=== PATIENT | female | born 1970 | race Caucasian/White ===

== ENCOUNTER 2020-08-26 04:18 | Day surgery (SDC) | payer OTHER ==
[2020-08-25 16:38] VITALS: BMI 22.6
[2020-08-26] MEDS ORDERED: IBUPROFEN 400 MG TABLET (FP) PO PRN (09:37)
[2020-08-26] MEDS ORDERED: ACETAMINOPHEN 325 MG TABLET (FP) PO PRN (09:37)
--- NOTE | 2020-08-26 09:46 | HP ---
Admitting History and Physical - Admission History of Present Illness: 50 yo with hx/o irregular bleeding for hysteroscopy, D&C Hx/o tamoxifen use x 6 years History Source: Patient Limitations to Obtaining History: No Limitations - Past Medical History Cardiovascular: No: HTN Pulmonary: No: Asthma Gastrointestinal: Yes: GERD Renal/: Yes: Other (Renal Cell Carcinoma, s/p partial nephrectomy) ...LMP: 08/12/20 Additional Past Medical History: Breast CA s/p bilateral mastectomy and tamoxifen x 6 tears - Past Surgical History Additional Past Surgical History: L Partial nephrectomy Bilateral mastectomy Adenoidectomy CD x 2 Appendedctomy - Smoking History Smoking history: Never smoked Have you smoked in the past 12 months: No - Alcohol/Substance Use Hx Alcohol Use: No History of Substance Use: reports: None Home Medications - Allergies Allergies/Adverse Reactions: Allergies Allergy/AdvReac Type Severity Reaction Status Date / Time No Known Allergies Allergy Verified 08/26/20 09:03 - Home Medications Home Medications: Ambulatory Orders NK [No Known Home Medication] 08/25/20 Family Medical History Family History: Denies Review of Systems - Review of Systems Constitutional: reports: No Symptoms Neck: reports: No Symptoms Cardiovascular: reports: No Symptoms Gastrointestinal: reports: No Symptoms Genitourinary: reports: No Symptoms Integumentary: reports: No Symptoms Neurological: reports: No Symptoms Hematology/Lymphatic: reports: No Symptoms Psychiatric: reports: No Symptoms Physical Examination Vital Signs: Vital Signs Temperature 98.2 F 08/26/20 08:30 Pulse Rate 78 08/26/20 08:30 Respiratory Rate 16 08/26/20 08:30 Blood Pressure 121/72 08/26/20 08:30 O2 Sat by Pulse Oximetry (%) 100 08/26/20 08:30 Constitutional: Yes: Well Nourished, No Distress, Calm Cardiovascular: Yes: Regular Rate and Rhythm Respiratory: Yes: Regular, CTA Bilaterally Gastrointestinal: Yes: Soft Edema: No Assessment/Plan 50 yo with irregular bleeding hx/o tamoxifen use for hysteroscopy, D&C 1. Consents reviewed and signed, risks/benefits/alternatives and complications discussed including but not limited to infection, bleeding, damage to surrounding organs, uterine perforation 2. SCDs for DVT prophylaxis 3. No antibiotics necessary 4. Reviewed preop labs, COVID negative 5. Will proceed to OR
[2020-08-26] MEDS ORDERED: MIDAZOLAM HCL 2 MG/2 ML SINGLE DOSE VIAL ONE (10:42)
[2020-08-26] MEDS ORDERED: PROPOFOL 20 ML ONE (10:42)
[2020-08-26] MEDS ORDERED: LIDOCAINE HCL/PF 2% SDV 5ML VIAL ONE (10:51)
[2020-08-26] MEDS ORDERED: DEXAMETHASONE SOD PHOSPHATE 4 MG/1 ML VIAL ONE (11:00)
[2020-08-26] MEDS ORDERED: KETOROLAC TROMETHAMINE 30 MG/1 ML VIAL ONE (11:10)
[2020-08-26] MEDS ORDERED: ONDANSETRON 4 MG/2 ML VIAL IVPUSH PRN (11:39)
[2020-08-26] MEDS ORDERED: PROMETHAZINE HCL 25 MG/1 ML VIAL IVPUSH PRN (11:39)
[2020-08-26] MEDS ORDERED: oxyCODONE HCL 5 MG TABLET PO PRN (11:39)
[2020-08-26] MEDS ORDERED: LACTATED RINGERS SOLUTION 1,000 ML IV SCH (11:45)
--- NOTE | 2020-08-26 11:50 | OP ---
Operative Note - Note: Operative Date: 08/26/20 Pre-Operative Diagnosis: 1. Menorrhagia; 2. irregular menses; 3. Hx/o Tamoxifen use Operation: hysteroscopy, dilation and curettage, fractional D&C Findings: normal appearing endometrium, bilateral ostia visualized, anterior submucosal fibroid Post-Operative Diagnosis: Same as Pre-op Surgeon: Rachel Coats Anesthesiologist/MORTUARY OPERATIONS MANAGER: Robin De La Paz Anesthesia: General Estimated Blood Loss (mls): 5 Drains, Volume Out (mls): 50 (fluid deficit) Fluid Volume Replaced (mls): 300 Operative Report Dictated: Yes
--- NOTE | 2020-08-26 12:31 | OP ---
DATE OF OPERATION: 08/26/2020 SURGEON: Noble Coats MD PREOPERATIVE DIAGNOSIS: Menorrhagia, history of tamoxifen use, and abnormal Pap smear. POSTOPERATIVE DIAGNOSIS: Menorrhagia, history of tamoxifen use, and abnormal Pap smear. PROCEDURE: Hysteroscopy, suction, dilatation and curettage. ANESTHESIOLOGIST: MD FLUIDS GIVEN: 300 mL. ESTIMATED BLOOD LOSS: 5 mL. FLUID DEFICIT: 15 mL. INDICATIONS: The patient is a 50-year-old with a history of tamoxifen use and irregular periods. Recent Pap smear with abnormal cells. Cannot rule out high-grade for a suction, D and C. The risks, benefits, alternatives, and complications of the procedure were discussed including infection, bleeding, and perforation. She expressed understanding. She was brought to the operating room. DETAILS OF PROCEDURE: When anesthesia was found to be adequate, the patient was prepped and draped in the normal sterile fashion and placed in dorsal lithotomy position using Martin stirrups. A weighted speculum was placed in the posterior vagina. The anterior vagina was retracted using King retractor. The anterior lip of the cervix was grasped using an Allis clamp. Intercervical curetting was performed. The cervix was found to be dilated. Hysteroscope was placed. Normal tubes and endometrium was noted. Gentle sharp curetting was performed. Endometrial tissue was collected and sent to pathology. All instruments were removed. The patient was awakened from anesthesia and brought to the recovery room in stable condition. NOBLE COATS M.D. [id number]
[2020-08-26 12:54] VITALS: TEMP 97.8
[2020-08-26 14:23] VITALS: BP 145/76; PULSE 96
--- NOTE | 2020-08-28 13:58 | PATH ---
Surgical Pathology Report Patient Name: VALENTIN DO [facility]. Rec. #: [id number] /Age/Gender: 1970 (Age: 50) / F Account: [id number] Location: [facility] SURGICAL Taken: 08/26/2020 Received: 08/26/2020 Reported: 08/28/2020 Physicians: Rachel Coats Specimen(s) Received A: ENDOCERVICAL CURETTINGS B: ENDOMETRIAL CURETTINGS Clinical History Irregular menstruation History of tamoxifen use x6 years, irregular menses/menorrhagia, thickened endometrium on ultrasound Recent Pap smear-atypical squamous cells, cannot rule out high grade, HPV negative (07/2020), history of HPV 2018-negative colposcopy Final Diagnosis A. ENDOCERVICAL CURETTINGS: FRAGMENTS OF ENDOCERVICAL TISSUE WITH MICROGLANDULAR HYPERPLASIA AND SQUAMOUS METAPLASIA. NO EVIDENCE OF DYSPLASIA. B. ENDOMETRIAL CURETTINGS: ENDOMETRIAL POLYP. SEPARATE WEAKLY PROLIFERATIVE ENDOMETRIUM WITH EOSINOPHILIC SYNCYTIAL CHANGE. CERVICAL SQUAMOUS EPITHELIUM WITH ACUTE AND CHRONIC INFLAMMATION. Electronically Signed Nikos Gonzalez M.D. Gross Description A. Received in formalin labeled "endocervical curettings," is a 2.2 x 1.5 x 0.3 cm aggregate of blood-tinged mucus, possibly containing soft tissue fragments. The formalin is filtered and the specimen is entirely submitted in one cassette. B. Received in formalin labeled "endometrial curettings," is a 2.6 x 2.2 x 0.3 cm aggregate of ramon red soft tissue fragments. The formalin is filtered and the specimen is entirely submitted in 2 cassettes. /08/26/2020 saudi/08/26/2020
== END 2020-08-26 14:26 | disposition home or self-care (01) ==
LOC: JASU-SURG 04:18
PROVIDERS: ATTEND Obstetrics & Gynecology
PROC: 0UDB8ZX Extraction of Endometrium, Via Natural or Artificial Opening Endoscopic, Diagnostic (ICD-10-PCS; principal; 2020-08-26 10:00)
DX: N92.0 Excessive and frequent menstruation with regular cycle (principal); R87.619 Unspecified abnormal cytological findings in specimens from cervix uteri; Z92.29 Personal history of other drug therapy
CPT/HCPCS: 36415; 84703; 86850; 86900; 86901; 86922; 88305-TC; 94760

== ENCOUNTER 2020-09-23 04:24 | Day surgery (SDC) | payer OTHER ==
[2020-09-22 13:57] VITALS: BMI 22.6
[2020-09-23] MEDS ORDERED: DEXAMETHASONE SOD PHOSPHATE 4 MG/1 ML VIAL ONE ×2 (11:28→12:29)
[2020-09-23] MEDS ORDERED: MIDAZOLAM HCL 2 MG/2 ML SINGLE DOSE VIAL ONE (11:28)
[2020-09-23] MEDS ORDERED: PROPOFOL 20 ML ONE (11:28)
[2020-09-23] MEDS ORDERED: LIDOCAINE HCL/PF 2% SDV 5ML VIAL ONE (11:28)
[2020-09-23] MEDS ORDERED: ONDANSETRON 4 MG/2 ML VIAL ONE ×2 (11:28→12:29)
[2020-09-23] MEDS ORDERED: ACETAMINOPHEN 325 MG TABLET (FP) PO PRN (12:11)
[2020-09-23] MEDS ORDERED: IBUPROFEN 400 MG TABLET (FP) PO PRN (12:11)
[2020-09-23] MEDS ORDERED: KETOROLAC TROMETHAMINE 30 MG/1 ML VIAL ONE (12:29)
[2020-09-23] MEDS ORDERED: ONDANSETRON 4 MG/2 ML VIAL IVPUSH PRN (12:45)
[2020-09-23] MEDS ORDERED: oxyCODONE HCL 5 MG TABLET PO PRN ×2 (12:45)
[2020-09-23] MEDS ORDERED: LACTATED RINGERS SOLUTION 1,000 ML IV SCH (12:45)
[2020-09-23 15:25] VITALS: BP 129/84; PULSE 78; TEMP 98
== END 2020-09-23 15:30 | disposition home or self-care (01) ==
LOC: JASU-SURG 04:24
PROVIDERS: ATTEND Obstetrics & Gynecology
PROC: 0UBC7ZX Excision of Cervix, Via Natural or Artificial Opening, Diagnostic (ICD-10-PCS; principal; 2020-09-23 12:00)
DX: N87.0 Mild cervical dysplasia (principal)
CPT/HCPCS: 36415; 84703; 86850; 86900; 86901; 86922; 88305-TC; 88307-TC; 94760

== ENCOUNTER 2020-10-23 05:38 | Day surgery (SDC) | payer OTHER ==
[2020-10-22 07:59] VITALS: BMI 23.3
[2020-10-23] MEDS ORDERED: LIDOCAINE HCL 2% JELLY 10 ML CARTRIDGE ONE ×2 (13:53→13:56)
[2020-10-23] MEDS ORDERED: IBUPROFEN 600 MG TABLET (FP) PO ONE (14:45)
[2020-10-23 15:47] VITALS: BP 130/74; PULSE 75; TEMP 98
== END 2020-10-23 15:47 | disposition home or self-care (01) ==
LOC: JASU-ENDO 05:38
PROVIDERS: ATTEND Internal Medicine Gastroenterology
PROC: 06LY4CC Occlusion of Hemorrhoidal Plexus with Extraluminal Device, Percutaneous Endoscopic Approach (ICD-10-PCS; principal; 2020-10-23 13:30)
DX: K64.8 Other hemorrhoids (principal); K57.30 Diverticulosis of large intestine without perforation or abscess without bleeding
CPT/HCPCS: 81025

== ENCOUNTER 2021-09-13 20:55 | Emergency (ER) | payer OTHER ==
[2021-09-13] MEDS ORDERED: DALBAVANCIN HCL 1,500 MG in DEXTROSE 5%-WATER - 500 ML IVPB ONE (21:08)
[2021-09-13 21:10] VITALS: BP 157/86; PULSE 95; TEMP 99.1; BMI 22.4
== END 2021-09-13 22:28 | disposition home or self-care (01) ==
LOC: FER 20:55
DX: L03.116 Cellulitis of left lower limb (principal)
CPT/HCPCS: 99284-25; J0875

== ENCOUNTER 2024-03-29 04:39 | Day surgery (SDC) | payer OTHER ==
[2024-03-27 10:16] VITALS: BMI 22.4
[2024-03-29] MEDS ORDERED: LIDOCAINE HCL 2% JELLY 11 ML TP ONE (11:56)
[2024-03-29] MEDS ORDERED: FENTANYL CITRATE/PF 50 MCG/ML VIAL ONE (12:15)
[2024-03-29] MEDS: LIDOCAINE HCL 2% 100 MG/5 ML DISP.SYRIN NR ONE (12:25)
[2024-03-29 12:49] VITALS: TEMP 97.8
[2024-03-29] MEDS ORDERED: ACETAMINOPHEN INJECTION 100 ML IVPB ONE (12:54)
[2024-03-29] MEDS: ACETAMINOPHEN 1000 MG/100 ML BAG IVPB ONE (13:25)
[2024-03-29] MEDS: MAG HYDROX/AL HYDROX/SIMETH 30 ML UNIT-DOSE CUP PO ONE (14:13)
[2024-03-29] MEDS: PANTOPRAZOLE SODIUM 40 MG VIAL IVPUSH ONE (14:13)
[2024-03-29 14:36] VITALS: BP 149/74; PULSE 68; RESP 18
== END 2024-03-29 14:36 | disposition home or self-care (01) ==
LOC: JASU-ENDO 04:39
PROVIDERS: ATTEND Internal Medicine Gastroenterology
PROC: 06LY8CC Occlusion of Hemorrhoidal Plexus with Extraluminal Device, Via Natural or Artificial Opening Endoscopic (ICD-10-PCS; 2024-03-29)
PROC: 0DJD8ZZ Inspection of Lower Intestinal Tract, Via Natural or Artificial Opening Endoscopic (ICD-10-PCS; principal; 2024-03-29 12:00)
DX: Z12.11 Encounter for screening for malignant neoplasm of colon (principal); K64.8 Other hemorrhoids; K64.4 Residual hemorrhoidal skin tags; K92.1 Melena
CPT/HCPCS: 81025; J0131